=== PATIENT | male | born 1980 | race Hispanic/Latino ===

== ENCOUNTER 2017-05-12 20:35 | Emergency (ER) | payer SELFPAY ==
[~2017-05-12] VITALS: Ht 177.8 cm; Wt 107.8 kg
[~2017-05-12 20:35] MED LIST: ADVIL200 MG PO; ANAPROX DS550 M1 PO; CLEOCIN300 MG PO; KEFLEX250 MG PO; PEN-VEE K,VEET500 MG PO; PROMETHAZINE HC25 M1 PO; ROBITUSSIN AC,T10 ML PO; TAMIFLU75 MG PO; ZITHROMAX Z-PA250 MG PO
[2017-05-12 21:36] LABS: ADD MIUA? NO; BILIRUBIN NEGATIVE; BLOOD NEGATIVE; COLOR YELLOW ((YELLOW)); GLUCOSE (STRIP) NEGATIVE; KETONES NEGATIVE; LEUKOCYTES NEGATIVE; NITRITE NEGATIVE; PROTEIN (STRIP) 30; SPECIFIC GRAVITY 1.029 (1.000-1.030); UROBILINOGEN 0.2 MG/DL (0.2-1.0)
[2017-05-12 21:52] LABS: AMPHETAMINE NEGATIVE (500 ng/mL); BARBITURATES NEGATIVE (200 ng/mL); BENZODIAZEPINES NEGATIVE (150 ng/mL); COCAINE NEGATIVE (150 ng/mL); INTERNAL CONTROLS VALID? YES; METHADONE NEGATIVE (200 ng/mL); METHAMPHETAMINE NEGATIVE (500 ng/mL); OPIATES (MORPHINE) NEGATIVE (100 ng/mL); OXYCODONE NEGATIVE (100 ng/mL); PHENCYCLIDINE NEGATIVE (25 ng/mL); PROPOXYPHENE NEGATIVE (300 ng/mL); THC CANNABINOIDS PRESUMPTIVE POSITIVE (50 ng/mL); TRICYCLIC ANTIDEPRESSANTS NEGATIVE (300 ng/mL)
[2017-05-12 21:53] LABS: ADD MEDTOX COMMENT Y
[2017-05-12] MEDS ORDERED: ATARAX,VISTARIL25 MG PO (22:41)
[2017-05-12 23:20] VITALS: BP 140/107
== END 2017-05-12 23:21 | disposition home or self-care (01) ==
LOC: EME 20:35 → EXP 20:35
DX: F41.1 Generalized anxiety disorder (principal); F17.200 Nicotine dependence, unspecified, uncomplicated
CPT/HCPCS: 81003; 84999; 93005; 99281; 99284

== ENCOUNTER 2017-10-14 23:35 | Emergency (ER) | payer SELFPAY ==
[~2017-10-14] VITALS: Ht 185.4 cm; Wt 110.9 kg
[~2017-10-14 23:35] MED LIST changes: +ATARAX,VISTARIL25 MG PO
[2017-10-15 00:36] LABS: HEMATOCRIT 46.2 % (38.0-50.0); HEMOGLOBIN 15.7 G/DL (12.5-16.6); MCH 29.9 PG (29.0-34.0); PLATELET COUNT 180 K/uL (156-360); RBC DIS.WIDTH-CV 13.2 % (11.8-14.6); RBC DIS.WIDTH-SD 42.6 % (39-53); RED BLOOD COUNT 5.25 M/uL (4.00-5.50); WHITE BLOOD COUNT 7.2 K/uL (4.1-10.2)
[2017-10-15 00:59] LABS: ALBUMIN 4.2 g/dL (3.2-4.8)
[2017-10-15 01:00] LABS: CHLORIDE 105 mEq/L (99-109); POTASSIUM 3.9 mEq/L (3.7-5.4); SODIUM 137 mEq/L (136-147)
[2017-10-15 01:02] LABS: GLUCOSE 121 mg/dL (70-99); TOTAL PROTEIN 7.6 g/dL (6.4-8.3)
[2017-10-15 01:04] LABS: TOTAL BILIRUBIN 0.3 mg/dL (0.0-1.0)
[2017-10-15 01:05] LABS: ALKALINE PHOSPHATASE 57 IU/L (3-129)
[2017-10-15 01:06] LABS: CREATININE 1.2 mg/dL (0.6-1.3); GFR ESTIMATE (CALCULATED) > 59 mL/min/ (58.99-99999)
[2017-10-15 01:07] LABS: AST (GOT) 22 IU/L (2-34); UREA NITROGEN (BUN) 16 mg/dL (9-23)
[2017-10-15 01:08] LABS: ALT (GPT) 22 IU/L (3-49)
[2017-10-15 05:26] LABS: LIPASE 14 U/L (1.0-51.0)
[2017-10-15 06:17] LABS: APPEARANCE SL.HAZY ((CLEAR)); BILIRUBIN NEGATIVE; BLOOD SMALL; COLOR YELLOW ((YELLOW)); GLUCOSE (STRIP) NEGATIVE; KETONES 20; LEUKOCYTES NEGATIVE; NITRITE NEGATIVE; PROTEIN (STRIP) NEGATIVE; SPECIFIC GRAVITY 1.029 (1.000-1.030); UROBILINOGEN 0.2 MG/DL (0.2-1.0)
[2017-10-15] MEDS ORDERED: ZOFRAN4 MG PO (06:24)
[2017-10-15] MEDS ORDERED: BENTYL20 MG PO (06:24)
[2017-10-15 06:49] VITALS: BP 119/70
[2017-10-15 06:50] LABS: BACTERIA RARE /HPF; EPITHELIAL CELLS NONE SEEN /HPF; HYALINE CASTS 0-5 /LPF; MUCUS 4+ /LPF; UCUL ADDED? NO; WHITE BLOOD CELLS 0-5 /HPF (0-5)
== END 2017-10-15 06:53 | disposition home or self-care (01) ==
LOC: EME 23:35
DX: B34.9 Viral infection, unspecified (principal); R31.9 Hematuria, unspecified; F17.200 Nicotine dependence, unspecified, uncomplicated; F41.9 Anxiety disorder, unspecified
CPT/HCPCS: 80053; 81003; 83690; 85027; 99281; 99284

== ENCOUNTER 2018-01-05 08:53 | Emergency (ER) | payer SELFPAY ==
[~2018-01-05] VITALS: Ht 185.4 cm; Wt 112.3 kg
[~2018-01-05 08:53] MED LIST changes: +BENTYL20 MG PO; +ZOFRAN4 MG PO
[2018-01-05] MEDS ORDERED: AMOXICILLIN500 MG PO (11:52)
[2018-01-05] MEDS ORDERED: PERCOCET 5/31 TABLET PO (11:52)
[2018-01-05 11:59] VITALS: BP 141/93
== END 2018-01-05 12:01 | disposition home or self-care (01) ==
LOC: EME 08:53
DX: K04.7 Periapical abscess without sinus (principal); F41.9 Anxiety disorder, unspecified; F17.200 Nicotine dependence, unspecified, uncomplicated
CPT/HCPCS: 99281; 99285